=== PATIENT | male | born 1945 | race Caucasian/White ===

== ENCOUNTER 2019-05-18 09:50 | Emergency (ER) | payer MEDICARE, BC ==
[~2019-05-18] VITALS: Ht 167.6 cm; Wt 93.6 kg
[2019-05-18 14:49] VITALS: BP 121/68
== END 2019-05-18 14:52 | disposition home or self-care (01) ==
LOC: ED 12:57
DX: R42 Dizziness and giddiness (principal)
CPT/HCPCS: 36415; 70450; 70553; 71045; 80053; 84484; 85025; 93005; 93880; 99284

== ENCOUNTER → 2019-12-30 | Outpatient (CLI) | payer MEDICARE, BC ==
[~2019-12-30] MED LIST: AMBIEN PO; AMLO-150 PO; ASPI-496 PO; ASPIRIN PO; ATOR-2 PO; ATOR40TA PO; CARV-39 PO; EMPA25TA PO; FENO45CA2 PO; GLIP10TA13 PO; GLIP5TAB10 PO; HYDR25TA6 PO; IRON SUPP PO; LISI40TA PO; MECL-101 PO; METF850T10 PO; NIAC1000 PO; TAMS-11 PO; VITAMIN D PO
== END | disposition home or self-care (01) ==
LOC: CFH 08:29
PROVIDERS: ATTEND Internal Medicine Cardiovascular Disease
DX: I08.8 Other rheumatic multiple valve diseases (principal); R42 Dizziness and giddiness; I10 Essential (primary) hypertension
CPT/HCPCS: 93306

== ENCOUNTER 2020-06-15 10:14 | Day surgery (SDC) | payer MEDICARE, BC ==
[~2020-06-15] VITALS: Ht 167.6 cm; Wt 93.2 kg
[2020-06-15] MEDS ORDERED: LIDOCAINE 2%, 20ML ONE (11:05)
== END 2020-06-15 12:36 | disposition home or self-care (01) ==
LOC: CACL 10:14
PROVIDERS: ATTEND Internal Medicine Cardiovascular Disease
DX: I63.9 Cerebral infarction, unspecified (principal); I10 Essential (primary) hypertension; E11.9 Type 2 diabetes mellitus without complications
CPT/HCPCS: 33285; C1764

== ENCOUNTER 2021-05-25 08:47 | Outpatient (CLI) | payer MEDICARE, BC ==
[~2021-05-25 08:47] MED LIST changes: -LISI40TA PO; +LISI40TA9 PO
[2021-05-25 09:17] LABS: ALBUMIN 3.9 g/dL (3.4-5.0)
[2021-05-25 09:19] LABS: BILIRUBIN, DIRECT 0.2 mg/dL (0.1-0.2); BILIRUBIN,INDIRECT 0.4 mg/dL (0.0-2.0); BILIRUBIN,TOTAL 0.6 mg/dL (0.2-1.0); CHOL/HDL RATIO 3.5; LDL/HDL RATIO 1.5 (0.5-3.0); TOTAL PROTEIN 7.3 g/dL (6.4-8.2)
== END 2021-05-25 23:59 | disposition home or self-care (01) ==
LOC: LAB 08:47
PROVIDERS: ATTEND Internal Medicine
DX: I12.9 Hypertensive chronic kidney disease with stage 1 through stage 4 chronic kidney disease, or unspecified chronic kidney disease (principal); E11.22 Type 2 diabetes mellitus with diabetic chronic kidney disease; I25.10 Atherosclerotic heart disease of native coronary artery without angina pectoris; N18.9 Chronic kidney disease, unspecified; E78.2 Mixed hyperlipidemia; E11.9 Type 2 diabetes mellitus without complications; Z68.33 Body mass index [BMI] 33.0-33.9, adult
CPT/HCPCS: 36415; 80061; 80076